=== PATIENT | male | born 1975 | race Two or more races ===

== ENCOUNTER 2017-09-04 16:13 | Emergency (ER) | payer OTHER ==
[~2017-09-04] VITALS: Ht 177.8 cm; Wt 106.4 kg
[2017-09-04 16:23] VITALS: BP 143/102
--- NOTE | 2017-09-04 16:32 | NUR ---
42YO M T ER FOR INTERGULTAL CLEFT CYST. APPROX 1.5 CM WITH MIL REDNESS. PT STATES THAT HE WAS SEEN X1 MO AGO AT [facility] AND GIVEN ABX FOR THE CYST,. PT STATED COMPLEATING ABX AND CYST GOT SMALLER AND CAME BACK. PT REQUESTED TO HAVE CYST "DRAINED". NO OTHER MEDICAL C/O AT THIS TIME. ER MD MADE AWARE, WILL CONTINUE TO MONITOR, PT POSITIONED FOR COMFORT
--- NOTE | 2017-09-04 16:35 | NUR ---
Patient ambulated to bed 8. RN evaluating patient at bedside.
--- NOTE | 2017-09-04 16:36 | NUR ---
REPORT GIVEN TO BRITTANY PINA
[2017-09-04] MEDS ORDERED: LIDOCAINE 1% 500 MG/50 ML VIAL INJ SCH (16:55)
--- NOTE | 2017-09-04 16:57 | NUR ---
Patient being evaluated by physician at bedside.
--- NOTE | 2017-09-04 17:00 | NUR ---
1% LIDOCANE PLACED AT BEDSIDE FOR PROCEDURE
[2017-09-04] MEDS ORDERED: LIDOCAINE MPF 1% - **ER/OR** 10 ML ONE (17:05)
--- NOTE | 2017-09-04 17:10 | NUR ---
DR CHAMBERS AT BEDSIDE FOR I&D OF CYST
[2017-09-04 17:34] VITALS: BP 146/97
--- NOTE | 2017-09-04 17:34 | NUR ---
Patient discharged with v/s stable. Written and verbal after care instructions given and explained. Patient alert, oriented and verbalized understanding of instructions. Ambulatory with steady gait. All questions addressed prior to discharge. ID band removed. Patient advised to follow up with PMD. Rx of MOTRIN, CLINDAMYCIN given. Patient educated on indication of medication including possible reaction and side effects. Opportunity to ask questions provided and answered.
== END 2017-09-04 17:34 | disposition home or self-care (01) ==
LOC: MED 16:13
DX: L05.91 Pilonidal cyst without abscess (principal); I10 Essential (primary) hypertension
CPT/HCPCS: 10080; 99284; J2001

== ENCOUNTER 2018-04-23 20:51 | Emergency (ER) | payer OTHER ==
[~2018-04-23] VITALS: Ht 182.9 cm; Wt 95.3 kg
[2018-04-23 21:00] VITALS: BP 140/90
--- NOTE | 2018-04-23 21:00 | NUR ---
TO BED # 9 AMBULATORY , REPORT GIVEN TO TAD SOTO
--- NOTE | 2018-04-23 21:05 | NUR ---
PATIENT PRESENTED ER WITH C/O PAIN TO THE EYES BILATERAL, COUGH, AND ITCHY EARS X 1 DAY. PT HAS REDNNESS, DISCHARGE FORM THE EYES.PT HAS PAIN AT THIS TIME. PATIENT STATES PAIN OF 8/10 AT THIS TIME; VSS; PATIENT POSITIONED FOR COMFORT; HOB ELEVATED; BEDRAILS UP X2; BED DOWN. ER MD MADE AWARE OF PT STATUS. PT STATES HE IS ABLE TO SEE CLEAR. KNA AND NO PRIOR MED HX.
--- NOTE | 2018-04-23 22:58 | NUR ---
Dr. Brown evaluating patient at bedside.
[2018-04-23 23:17] VITALS: BP 128/98
--- NOTE | 2018-04-23 23:17 | NUR ---
Patient discharged with v/s stable. Written and verbal after care instructions given and explained. Patient alert, oriented and verbalized understanding of instructions. Ambulatory with steady gait. All questions addressed prior to discharge. ID band removed. Patient advised to follow up with PMD. Rx of MOTRIN, ERYTHROMYCIN PPHTHALMIC OITMENT, PREDNISONE given. Patient educated on indication of medication including possible reaction and side effects. Opportunity to ask questions provided and answered.
== END 2018-04-23 23:17 | disposition home or self-care (01) ==
LOC: MED 20:51
DX: H10.9 Unspecified conjunctivitis (principal); H92.03 Otalgia, bilateral; R05 Cough
CPT/HCPCS: 99283